=== PATIENT | male | born 1970 | race Caucasian/White ===

== ENCOUNTER 2018-05-12 02:22 | Emergency (ER) | payer SELFPAY ==
[~2018-05-12] VITALS: Ht 175.3 cm; Wt 80.7 kg
[2018-05-12 02:23] VITALS: BP 142/87
== END 2018-05-12 03:34 | disposition home or self-care (01) ==
LOC: ED 03:20
DX: J01.90 Acute sinusitis, unspecified (principal)
CPT/HCPCS: 99281